=== PATIENT | male | born 1980 | race Two or more races ===

== ENCOUNTER 2016-11-22 11:27 | Inpatient (IN) | payer MEDICAID ==
[~2016-11-22] VITALS: Ht 170.2 cm; Wt 63.5 kg
[2016-11-22 14:48] LABS: HEMATOCRIT. 30.7 % (42.0-52.0); HEMOGLOBIN. 10.2 g/dL (14.0-18.0); MEAN CORPUSCULAR HEMOGLOBIN 28.9 pg (28.0-32.0); MEAN CORPUSCULAR VOLUME 86.6 fL (80.0-94.0); MEAN PLATELET VOLUME 8.1 fl (7.4-10.4); PLATELET 246 x1000/uL (130-400); RED BLOOD CELL COUNT 3.55 mill/uL (4.7-6.1); RED CELL DISTRIBUTION WIDTH 15.3 % (11.6-14.6)
[2016-11-22 14:59] LABS: CARBON DIOXIDE 29 mEq/L (21-32); CHLORIDE 103 mEq/L (98-107)
[2016-11-22] MEDS ORDERED: KETOROLAC 30MG/ML VIAL IV ONE (15:30)
[2016-11-22] MEDS ORDERED: VANCOMYCIN 1 G PREMIX 200 ML IV SCH (15:30)
[2016-11-22] MEDS ORDERED: MORPHINE SULFATE 2 MG/ML CPJ (NOT FOR IM USE) IV ONE (15:30)
[2016-11-22 15:31] LABS: PLATELET ESTIMATE NORMAL
[2016-11-22] MEDS ORDERED: DOCUSATE SODIUM 100MG CAPSULE PO PRN ×2 (20:45→21:30)
[2016-11-22] MEDS ORDERED: HYDROCODONE PO (23:08)
[2016-11-22] MEDS ORDERED: AZIT PO (23:08)
[2016-11-22] MEDS ORDERED: BENA (23:12)
[2016-11-22] MEDS ORDERED: BENA20TA3 PO (23:12)
[2016-11-22] MEDS ORDERED: DOLUTEGRAVIR PO (23:12)
[2016-11-22] MEDS ORDERED: KETO5DRO80 RIGHTEYE (23:18)
[2016-11-22] MEDS ORDERED: SULF1TAB48 PO (23:18)
[2016-11-22] MEDS ORDERED: LEVO500T2 PO (23:18)
[2016-11-22] MEDS ORDERED: FLUC200T51 PO (23:18)
[2016-11-22] MEDS ORDERED: EMTR1TAB11 PO (23:18)
[2016-11-22 23:46] VITALS: BP 122/78
[2016-11-23] MEDS: MORPHINE SULFATE 4 MG/ML CPJ (NOT FOR IM USE) IV PRN ×3 (02:31→22:24)
[2016-11-23] MEDS: CEFTRIAXONE 1 G PREMIX 50 ML IV SCH (02:31)
[2016-11-23 03:54] LABS: CLARITY URINE CLEAR (CLEAR); COLOR URINE DARK YELLOW (YELLOW); GLUCOSE URINE NEGATIVE (NEGATIVE); KETONES URINE NEGATIVE (NEGATIVE); LEUKOCYTE ESTERASE URINE TRACE (NEGATIVE); NITRITE URINE POSITIVE (NEGATIVE); OCCULT BLOOD URINE NEGATIVE (NEGATIVE); PROTEIN URINE 1+ (NEGATIVE); SPECIFIC GRAVITY URINE 1.022 (1.005-1.030); UROBILINOGEN URINE 0.2 E.U./dL (0.2-1.0)
[2016-11-23 04:00] VITALS: BP 111/66
[2016-11-23 04:17] LABS: *AMPHETAMINES SCREEN URINE NEGATIVE (NEGATIVE); *BARBITURATES SCREEN URINE NEGATIVE (NEGATIVE); *BENZODIAZEPINES SCREEN URINE NEGATIVE (NEGATIVE); *COCAINE SCREEN URINE NEGATIVE (NEGATIVE); CANNABINOID URINE SCREEN NEGATIVE (NEGATIVE); METHADONE URINE SCREEN NEGATIVE (NEGATIVE); OPIATES URINE SCREEN PRESUMTIVE POSITIVE (NEGATIVE)
[2016-11-23 04:33] LABS: PHENCYCLIDINE URINE SCREEN NEGATIVE (NEGATIVE)
[2016-11-23 06:36] LABS: HEMATOCRIT. 27.6 % (42.0-52.0); HEMOGLOBIN. 9.3 g/dL (14.0-18.0); MEAN CORPUSCULAR HEMOGLOBIN 29.3 pg (28.0-32.0); MEAN CORPUSCULAR VOLUME 87.3 fL (80.0-94.0); MEAN PLATELET VOLUME 8.1 fl (7.4-10.4); PLATELET 235 x1000/uL (130-400); RED BLOOD CELL COUNT 3.16 mill/uL (4.7-6.1); RED CELL DISTRIBUTION WIDTH 15.4 % (11.6-14.6)
[2016-11-23 07:08] LABS: CHLORIDE 103 mEq/L (98-107)
[2016-11-23 07:18] LABS: CARBON DIOXIDE 28 mEq/L (21-32)
[2016-11-23 08:00] VITALS: BP 120/60
[2016-11-23] MEDS: METRONIDAZOLE 500 MG PREMIX 100 ML IV SCH ×2 (09:17→17:18)
[2016-11-23] MEDS: SODIUM CHLORIDE 0.9% 1,000 ML IV SCH (09:17)
[2016-11-23] MEDS: SULFAMETHOXAZOLE/TRIMETHOPRIM 800/160MG TABLET PO SCH ×2 (09:19→10:00)
[2016-11-23] MEDS: EMTRICITABINE 200MG CAPSULE PO SCH (10:00)
[2016-11-23] MEDS: RALTEGRAVIR 400MG TABLET PO SCH ×2 (10:00→17:18)
[2016-11-23] MEDS: TENOFOVIR 300MG TABLET PO SCH (10:01)
[2016-11-23 12:00] VITALS: BP 115/60
[2016-11-23 16:00] VITALS: BP 116/70
[2016-11-23 20:00] VITALS: BP 110/65
[2016-11-24] VITALS: BP 101/64
[2016-11-24] MEDS: ACETAMINOPHEN 325MG TABLET PO PRN (00:51)
[2016-11-24] MEDS: METRONIDAZOLE 500 MG PREMIX 100 ML IV SCH ×2 (00:54→09:09)
[2016-11-24] MEDS: CEFTRIAXONE 1 G PREMIX 50 ML IV SCH (02:55)
[2016-11-24] MEDS: SODIUM CHLORIDE 0.9% 1,000 ML IV SCH ×2 (02:58→15:47)
[2016-11-24 04:00] VITALS: BP 103/60
[2016-11-24 07:19] VITALS: BP 94/58
[2016-11-24 07:50] LABS: CARBON DIOXIDE 24 mEq/L (21-32); CHLORIDE 105 mEq/L (98-107)
[2016-11-24 07:51] LABS: BASOPHILS % 0.2 % (0.0-2.0); EOSINOPHILS % 1.2 % (0.0-5.0); HEMOGLOBIN. 8.4 g/dL (14.0-18.0); LYMPHOCYTES % 7.3 % (20.0-50.0); MEAN CORPUSCULAR HEMOGLOBIN 29.3 pg (28.0-32.0); MEAN PLATELET VOLUME 8.6 fl (7.4-10.4); MONOCYTES % 10.5 % (2.0-8.0); NEUTROPHILS % 80.8 % (40.0-76.0); PLATELET 190 x1000/uL (130-400); RED BLOOD CELL COUNT 2.88 mill/uL (4.7-6.1); RED CELL DISTRIBUTION WIDTH 15.2 % (11.6-14.6)
[2016-11-24] MEDS: TENOFOVIR 300MG TABLET PO SCH (09:09)
[2016-11-24] MEDS: SULFAMETHOXAZOLE/TRIMETHOPRIM 800/160MG TABLET PO SCH (09:09)
[2016-11-24] MEDS: RALTEGRAVIR 400MG TABLET PO SCH ×2 (09:09→16:01)
[2016-11-24] MEDS: EMTRICITABINE 200MG CAPSULE PO SCH (09:09)
[2016-11-24 09:44] LABS: PLATELET ESTIMATE NORMAL
[2016-11-24 11:19] VITALS: BP 99/59
[2016-11-24] MEDS: MORPHINE SULFATE 4 MG/ML CPJ (NOT FOR IM USE) IV PRN ×2 (15:46→23:48)
[2016-11-24] MEDS: METRONIDAZOLE 500MG TABLET PO SCH ×2 (15:47→21:16)
[2016-11-24 20:00] VITALS: BP 104/58
[2016-11-25] VITALS: BP 100/60
[2016-11-25] MEDS: CEFTRIAXONE 1 G PREMIX 50 ML IV SCH (02:55)
[2016-11-25 04:00] VITALS: BP 99/58
[2016-11-25] MEDS: SODIUM CHLORIDE 0.9% 1,000 ML IV SCH ×2 (06:13→23:26)
[2016-11-25] MEDS: METRONIDAZOLE 500MG TABLET PO SCH ×3 (06:14→23:26)
[2016-11-25 08:00] VITALS: BP 98/58
[2016-11-25] MEDS: EMTRICITABINE 200MG CAPSULE PO SCH (09:32)
[2016-11-25] MEDS: SULFAMETHOXAZOLE/TRIMETHOPRIM 800/160MG TABLET PO SCH (09:33)
[2016-11-25] MEDS: TENOFOVIR 300MG TABLET PO SCH (09:33)
[2016-11-25] MEDS: RALTEGRAVIR 400MG TABLET PO SCH ×2 (09:33→18:21)
[2016-11-25] MEDS: AZITHROMYCIN 600 MG TABLET PO SCH (09:35)
[2016-11-25 12:00] VITALS: BP 100/58
[2016-11-25] MEDS: ONDANSETRON HCL 4MG/2ML VIAL IV PRN (15:21)
[2016-11-25 16:00] VITALS: BP 101/60
[2016-11-25] MEDS: MORPHINE SULFATE 4 MG/ML CPJ (NOT FOR IM USE) IV PRN (18:29)
[2016-11-25 20:00] VITALS: BP 104/57
[2016-11-26] VITALS: BP 106/63
[2016-11-26] MEDS: MORPHINE SULFATE 4 MG/ML CPJ (NOT FOR IM USE) IV PRN ×3 (01:39→23:05)
[2016-11-26] MEDS: MEROPENEM 500 MG in SODIUM CHLORIDE 0.9% 50 ML IV SCH ×3 (02:29→17:02)
[2016-11-26 04:00] VITALS: BP 106/65
[2016-11-26 06:45] LABS: BASOPHILS % 0.3 % (0.0-2.0); EOSINOPHILS % 1.5 % (0.0-5.0); HEMATOCRIT. 26.1 % (42.0-52.0); HEMOGLOBIN. 8.8 g/dL (14.0-18.0); LYMPHOCYTES % 9.1 % (20.0-50.0); MEAN CORPUSCULAR HEMOGLOBIN 28.8 pg (28.0-32.0); MEAN CORPUSCULAR VOLUME 86.1 fL (80.0-94.0); MEAN PLATELET VOLUME 8.3 fl (7.4-10.4); MONOCYTES % 8.1 % (2.0-8.0); PLATELET 207 x1000/uL (130-400); RED BLOOD CELL COUNT 3.04 mill/uL (4.7-6.1); RED CELL DISTRIBUTION WIDTH 14.9 % (11.6-14.6)
[2016-11-26 07:48] LABS: CARBON DIOXIDE 23 mEq/L (21-32); CHLORIDE 103 mEq/L (98-107)
[2016-11-26] MEDS: SULFAMETHOXAZOLE/TRIMETHOPRIM 800/160MG TABLET PO SCH (09:20)
[2016-11-26] MEDS: RALTEGRAVIR 400MG TABLET PO SCH ×2 (09:20→17:02)
[2016-11-26] MEDS: TENOFOVIR 300MG TABLET PO SCH (09:20)
[2016-11-26] MEDS: EMTRICITABINE 200MG CAPSULE PO SCH (09:20)
[2016-11-26 12:00] VITALS: BP 99/63
[2016-11-26 16:00] VITALS: BP 91/50
[2016-11-26] MEDS: SODIUM CHLORIDE 0.9% 1,000 ML IV SCH (17:02)
[2016-11-26] MEDS: ACETAMINOPHEN 325MG TABLET PO PRN (17:02)
[2016-11-26 20:00] VITALS: BP 104/59
[2016-11-27] VITALS: BP 104/61
[2016-11-27] MEDS: SODIUM CHLORIDE 0.9% 1,000 ML IV SCH ×3 (00:20→12:21)
[2016-11-27] MEDS: MEROPENEM 500 MG in SODIUM CHLORIDE 0.9% 50 ML IV SCH ×3 (02:59→18:39)
[2016-11-27] MEDS: MORPHINE SULFATE 4 MG/ML CPJ (NOT FOR IM USE) IV PRN ×4 (03:10→20:33)
[2016-11-27 04:00] VITALS: BP 102/61
[2016-11-27 08:00] VITALS: BP 103/60
[2016-11-27] MEDS: TENOFOVIR 300MG TABLET PO SCH (10:32)
[2016-11-27] MEDS: SULFAMETHOXAZOLE/TRIMETHOPRIM 800/160MG TABLET PO SCH (10:32)
[2016-11-27] MEDS: EMTRICITABINE 200MG CAPSULE PO SCH (10:32)
[2016-11-27] MEDS: RALTEGRAVIR 400MG TABLET PO SCH ×2 (10:32→18:28)
[2016-11-27 12:00] VITALS: BP 119/68
[2016-11-27 16:00] VITALS: BP 114/62
[2016-11-27 20:00] VITALS: BP 108/58
[2016-11-28] VITALS (7 sets, daily range): BP systolic 100–132; BP diastolic 58–69
[2016-11-28] MEDS: SODIUM CHLORIDE 0.9% 1,000 ML IV SCH (01:59)
[2016-11-28] MEDS: MEROPENEM 500 MG in SODIUM CHLORIDE 0.9% 50 ML IV SCH ×3 (01:59→18:24)
[2016-11-28] MEDS: MORPHINE SULFATE 4 MG/ML CPJ (NOT FOR IM USE) IV PRN ×4 (02:01→22:06)
[2016-11-28 07:37] LABS: BASOPHILS % 0.2 % (0.0-2.0); EOSINOPHILS % 1.8 % (0.0-5.0); HEMATOCRIT. 21.9 % (42.0-52.0); HEMOGLOBIN. 7.5 g/dL (14.0-18.0); MEAN CORPUSCULAR HEMOGLOBIN 29.5 pg (28.0-32.0); MEAN CORPUSCULAR VOLUME 85.7 fL (80.0-94.0); MEAN PLATELET VOLUME 8.3 fl (7.4-10.4); MONOCYTES % 7.8 % (2.0-8.0); NEUTROPHILS % 81.2 % (40.0-76.0); PLATELET 193 x1000/uL (130-400); RED BLOOD CELL COUNT 2.55 mill/uL (4.7-6.1); RED CELL DISTRIBUTION WIDTH 14.5 % (11.6-14.6)
[2016-11-28 07:48] LABS: CARBON DIOXIDE 26 mEq/L (21-32); CHLORIDE 103 mEq/L (98-107)
[2016-11-28] MEDS: RALTEGRAVIR 400MG TABLET PO SCH ×2 (09:26→18:24)
[2016-11-28] MEDS: EMTRICITABINE 200MG CAPSULE PO SCH (09:27)
[2016-11-28] MEDS: TENOFOVIR 300MG TABLET PO SCH (09:27)
[2016-11-28] MEDS: SULFAMETHOXAZOLE/TRIMETHOPRIM 800/160MG TABLET PO SCH (09:28)
[2016-11-28] MEDS ORDERED: MORPHINE SULFATE 2 MG/ML CPJ (NOT FOR IM USE) IV PRN (15:00)
[2016-11-28] MEDS ORDERED: HYDR-523 PO (15:51)
[2016-11-29] MEDS: ACETAMINOPHEN 325MG TABLET PO PRN ×2 (00:46→16:38)
[2016-11-29 00:47] VITALS: BP 106/70
[2016-11-29] MEDS: MEROPENEM 500 MG in SODIUM CHLORIDE 0.9% 50 ML IV SCH ×3 (02:00→18:49)
[2016-11-29 04:00] VITALS: BP 110/72
[2016-11-29] MEDS: MORPHINE SULFATE 4 MG/ML CPJ (NOT FOR IM USE) IV PRN ×3 (07:09→20:28)
[2016-11-29 08:00] VITALS: BP 120/70
[2016-11-29] MEDS: TENOFOVIR 300MG TABLET PO SCH (09:05)
[2016-11-29] MEDS: SULFAMETHOXAZOLE/TRIMETHOPRIM 800/160MG TABLET PO SCH (09:05)
[2016-11-29] MEDS: RALTEGRAVIR 400MG TABLET PO SCH ×2 (09:06→16:38)
[2016-11-29] MEDS: EMTRICITABINE 200MG CAPSULE PO SCH (09:06)
[2016-11-29 11:51] LABS: HEMATOCRIT. 21.8 % (42.0-52.0); HEMOGLOBIN. 7.2 g/dL (14.0-18.0); MEAN CORPUSCULAR HEMOGLOBIN 28.8 pg (28.0-32.0); MEAN CORPUSCULAR VOLUME 86.7 fL (80.0-94.0); MEAN PLATELET VOLUME 8.1 fl (7.4-10.4); PLATELET 207 x1000/uL (130-400); RED BLOOD CELL COUNT 2.52 mill/uL (4.7-6.1); RED CELL DISTRIBUTION WIDTH 14.5 % (11.6-14.6)
[2016-11-29 12:00] VITALS: BP 104/59
[2016-11-29 16:00] VITALS: BP 100/56
[2016-11-29 16:04] LABS: PLATELET ESTIMATE NORMAL
[2016-11-29] MEDS: ONDANSETRON HCL 4MG/2ML VIAL IV PRN (16:38)
[2016-11-29] MEDS: FLUCONAZOLE 200MG TABLET PO SCH (18:57)
[2016-11-29 20:00] VITALS: BP 121/71
[2016-11-29] MEDS: SODIUM CHLORIDE 0.9% 1,000 ML IV SCH ×2 (20:29→21:33)
[2016-11-30] VITALS (18 sets, daily range): BP systolic 96–118; BP diastolic 52–68
[2016-11-30] MEDS: MORPHINE SULFATE 4 MG/ML CPJ (NOT FOR IM USE) IV PRN ×4 (00:48→23:01)
[2016-11-30] MEDS: MEROPENEM 500 MG in SODIUM CHLORIDE 0.9% 50 ML IV SCH ×3 (02:00→18:28)
[2016-11-30 06:51] LABS: BASOPHILS % 0.3 % (0.0-2.0); EOSINOPHILS % 1.8 % (0.0-5.0); HEMATOCRIT. 22.8 % (42.0-52.0); HEMOGLOBIN. 7.8 g/dL (14.0-18.0); MEAN CORPUSCULAR HEMOGLOBIN 29.8 pg (28.0-32.0); MEAN CORPUSCULAR VOLUME 86.7 fL (80.0-94.0); MEAN PLATELET VOLUME 8.1 fl (7.4-10.4); MONOCYTES % 7.7 % (2.0-8.0); NEUTROPHILS % 81.2 % (40.0-76.0); PLATELET 202 x1000/uL (130-400); RED BLOOD CELL COUNT 2.63 mill/uL (4.7-6.1)
[2016-11-30 07:32] LABS: CARBON DIOXIDE 23 mEq/L (21-32); CHLORIDE 104 mEq/L (98-107)
[2016-11-30] MEDS: FLUCONAZOLE 200MG TABLET PO SCH (10:47)
[2016-11-30] MEDS: SULFAMETHOXAZOLE/TRIMETHOPRIM 800/160MG TABLET PO SCH ×2 (10:47→14:51)
[2016-11-30] MEDS: EMTRICITABINE 200MG CAPSULE PO SCH (10:48)
[2016-11-30] MEDS: TENOFOVIR 300MG TABLET PO SCH (10:48)
[2016-11-30] MEDS: RALTEGRAVIR 400MG TABLET PO SCH ×2 (10:48→18:28)
[2016-11-30] MEDS: SODIUM CHLORIDE 0.9% 1,000 ML IV SCH (10:50)
[2016-11-30 17:35] LABS: T4 FREE 1.47 ng/dL (0.76-1.46)
[2016-11-30 19:32] LABS: FERRITIN 483 ng/mL (22-322)
[2016-11-30 20:54] LABS: CARCINO EMBRYONIC ANTIGEN < 0.1 ng/ml
[2016-11-30] MEDS: ACETAMINOPHEN 325MG TABLET PO PRN (21:29)
[2016-11-30 21:42] LABS: VITAMIN B12 SERUM 450 pg/mL (211-911)
[2016-12-01] VITALS (11 sets, daily range): BP systolic 99–115; BP diastolic 59–70
[2016-12-01] MEDS: MEROPENEM 500 MG in SODIUM CHLORIDE 0.9% 50 ML IV SCH ×3 (01:53→17:07)
[2016-12-01] MEDS: SODIUM CHLORIDE 0.9% 1,000 ML IV SCH ×2 (01:55→15:11)
[2016-12-01] MEDS: MORPHINE SULFATE 4 MG/ML CPJ (NOT FOR IM USE) IV PRN ×4 (03:48→20:46)
[2016-12-01 09:05] LABS: BASOPHILS % 0.3 % (0.0-2.0); EOSINOPHILS % 2.6 % (0.0-5.0); HEMATOCRIT. 32.8 % (42.0-52.0); HEMOGLOBIN. 11.3 g/dL (14.0-18.0); MEAN CORPUSCULAR HEMOGLOBIN 30.1 pg (28.0-32.0); MEAN CORPUSCULAR VOLUME 87.1 fL (80.0-94.0); MEAN PLATELET VOLUME 8.1 fl (7.4-10.4); MONOCYTES % 6.9 % (2.0-8.0); NEUTROPHILS % 82.2 % (40.0-76.0); PLATELET 212 x1000/uL (130-400); RED BLOOD CELL COUNT 3.76 mill/uL (4.7-6.1)
[2016-12-01 09:30] LABS: CARBON DIOXIDE 25 mEq/L (21-32); CHLORIDE 103 mEq/L (98-107)
[2016-12-01] MEDS: FLUCONAZOLE 200MG TABLET PO SCH (10:30)
[2016-12-01] MEDS: EMTRICITABINE 200MG CAPSULE PO SCH (10:31)
[2016-12-01] MEDS: TENOFOVIR 300MG TABLET PO SCH (10:31)
[2016-12-01] MEDS: SULFAMETHOXAZOLE/TRIMETHOPRIM 800/160MG TABLET PO SCH (10:31)
[2016-12-01] MEDS: RALTEGRAVIR 400MG TABLET PO SCH ×2 (10:32→17:07)
[2016-12-02] VITALS (7 sets, daily range): BP systolic 106–120; BP diastolic 69–84
[2016-12-02] MEDS: MORPHINE SULFATE 4 MG/ML CPJ (NOT FOR IM USE) IV PRN ×3 (00:49→16:49)
[2016-12-02] MEDS: MEROPENEM 500 MG in SODIUM CHLORIDE 0.9% 50 ML IV SCH ×3 (01:16→16:48)
[2016-12-02] MEDS: SODIUM CHLORIDE 0.9% 1,000 ML IV SCH (05:46)
[2016-12-02] MEDS: SULFAMETHOXAZOLE/TRIMETHOPRIM 800/160MG TABLET PO SCH (08:36)
[2016-12-02] MEDS: EMTRICITABINE 200MG CAPSULE PO SCH (08:37)
[2016-12-02] MEDS: TENOFOVIR 300MG TABLET PO SCH (08:37)
[2016-12-02] MEDS: RALTEGRAVIR 400MG TABLET PO SCH ×2 (08:37→18:20)
[2016-12-02] MEDS: FLUCONAZOLE 200MG TABLET PO SCH (08:37)
[2016-12-02] MEDS: AZITHROMYCIN 600 MG TABLET PO SCH (08:37)
== END 2016-12-02 18:30 | disposition home health service (06) | DRG 890 ==
LOC: ER 11:27 → 6EST 15:35 → ENRESERV 20:21 → ER 21:22 → 8WST 11-29 15:23
PROVIDERS: ADMIT Internal Medicine; ATTEND Internal Medicine
PROC: 30233N1 Transfusion of Nonautologous Red Blood Cells into Peripheral Vein, Percutaneous Approach (ICD-10-PCS; principal; 2016-11-30)
DX: B20 Human immunodeficiency virus [HIV] disease (principal); N17.9 Acute kidney failure, unspecified; C85.10 Unspecified B-cell lymphoma, unspecified site; G03.9 Meningitis, unspecified; B25.8 Other cytomegaloviral diseases; C85.90 Non-Hodgkin lymphoma, unspecified, unspecified site; D68.9 Coagulation defect, unspecified; K61.2 Anorectal abscess; H54.42 Blindness, left eye, normal vision right eye; D64.9 Anemia, unspecified; N39.0 Urinary tract infection, site not specified; I10 Essential (primary) hypertension; Z79.899 Other long term (current) drug therapy; E44.1 Mild protein-calorie malnutrition; Z68.21 Body mass index [BMI] 21.0-21.9, adult
CPT/HCPCS: 36415; 80048; 80053; 80305; 81001; 82270; 82378; 82607; 82728; 82746; 83540; 83550; 84439; 84484; 85025; 85044; 86850; 86900; 86920; 87040; 87070; 87077; 87086; 87186; 87205; 87899; 93005; 93306; 93970; 96365; 96366; 96375; 99285; C1893; J0696; J1885; J2185; J2270; J2405; J3370; J3490; J7030; J7040; J7050; P9016; P9021